=== PATIENT | male | born 1955 ===

== ENCOUNTER 2019-08-05 13:30 | Outpatient (CLI) | payer OTHER ==
[~2019-08-05] VITALS: Ht 172.7 cm; Wt 77.6 kg
[~2019-08-05 13:30] MED LIST: [UNRECOGNIZED DRUG - REMARK]
[2019-08-05 14:01] VITALS: BP_SYST 170; BP_DIAS 114; BP_DIAS 44
--- NOTE | 2019-08-05 14:05 | NUR ---
PT'S BP HIGH BOTH 1ST MEASUREMENT 170/114 HR 96, 2ND 149/109. HE MENTIONED HE DID NOT TAKE BP MED TODAY YET WHICH UNKNOWN BP MED. DENIES SOB, PALPITATION OR ANY CHEST DISCOMFORT. INSTRUCTED PT TO TAKE BP MED WHEN HE GETS HOME IMMEDIATELY . Addendum: 08/06/19 at 1059 by ELIZABETH HUGGINS Amended: Links added.
--- NOTE | 2019-08-06 13:18 | General Progress Note ---
Assessment/Plan Assessment/Plan: screening colon eval Subjective ROS Limited/Unobtainable: Yes Allergies: Coded Allergies: No Known Allergies (Unverified , 08/06/19) Objective Last 24 Hour Vital Signs Date Time Temp Pulse Resp B/P (MAP) Pulse Ox O2 Delivery O2 Flow Rate FiO2 08/05/19 14:01 97.6 16 170/114 (132) 96 General Appearance: alert EENT: normal ENT inspection Neck: supple Cardiovascular: normal rate Respiratory/Chest: decreased breath sounds Abdomen: normal bowel sounds, non tender, soft Extremities: non-tender Charly Arthur MD August 06, 2019 13:18
== END 2019-08-05 15:30 | disposition home or self-care (01) ==
LOC: PAN 13:30
DX: R10.9 Unspecified abdominal pain (principal)
CPT/HCPCS: 99212

== ENCOUNTER 2019-10-28 13:11 | Outpatient (CLI) | payer OTHER ==
[2019-10-28 13:12] VITALS: BP 154/97
--- NOTE | 2019-10-28 13:18 | General Progress Note ---
Assessment/Plan Assessment/Plan: s/p colonoscopy one polyp diverticulosis repeat cln in 5 years Subjective ROS Limited/Unobtainable: Yes Allergies: Coded Allergies: No Known Allergies (Unverified , 08/06/19) Objective Last 24 Hour Vital Signs Date Time Temp Pulse Resp B/P (MAP) Pulse Ox O2 Delivery O2 Flow Rate FiO2 10/28/19 13:12 98.6 70 18 154/97 (116) 97 General Appearance: alert EENT: normal ENT inspection Neck: supple Cardiovascular: normal rate Respiratory/Chest: decreased breath sounds Abdomen: normal bowel sounds, non tender, soft Extremities: non-tender Charly Arthur MD Oct 28, 2019 13:18
== END 2019-10-28 15:11 | disposition home or self-care (01) ==
LOC: PAN 13:11
DX: K63.5 Polyp of colon (principal); K57.90 Diverticulosis of intestine, part unspecified, without perforation or abscess without bleeding
CPT/HCPCS: 99212